=== PATIENT | female | born 1950 | race Caucasian/White ===

== ENCOUNTER → 2016-10-16 | Outpatient (CLI) | payer MEDICARE | END | disposition home or self-care (01) | LOC: MRI 10:50 | PROVIDERS: ATTEND Psychiatry & Neurology Neurology | DX: G40.219 Localization-related (focal) (partial) symptomatic epilepsy and epileptic syndromes with complex partial seizures, intractable, without status epilepticus (principal); M50.01 Cervical disc disorder with myelopathy, high cervical region; M51.16 Intervertebral disc disorders with radiculopathy, lumbar region ==

== ENCOUNTER → 2017-12-11 | Outpatient (CLI) | payer MEDICARE ==
--- NOTE | 2017-12-11 15:24 | MRI ---
EXAM DESCRIPTION: Brain w/o Contrast: MRI. CLINICAL HISTORY: G40.219. Localization-related (focal) (partial) symptomatic epilepsy and epileptic syndromes with complex partial seizures, intractable, without status epilepticus. COMPARISON: MRI scan brain noncontrast 10/16/2016. TECHNIQUE: Multiplanar, high-field MRI unit, multiple diffusion sequences, multiple conventional sequences without contrast. FINDINGS: Few scattered bilateral foci of hyperintense FLAIR and T2-weighted signal in the periventricular white matter and fr[place]-white matter junctions of the cerebral hemispheres. . These are confined predominantly to the bilateral frontal and parietal lobes at the level of the ventricles and superiorly toward the vertex. No hemorrhage, no cerebral edema, no diffusion restriction. Stable since the prior study. Normal signal in the bilateral basal ganglia. Normal signal in the brainstem and cerebellar hemispheres. No hemorrhage, no cerebral edema, no mass-effect. Concordance of the diffusion and non-diffusion sequences with no diffusion restriction. Cortical sulci, ventricles, and other CSF spaces, and the subdural spaces are normally configured for patients age. No effacement or displacement. No midline shift. No extra-axial hemorrhage. Normal flow signal void in the major vessels of the [place], and the venous sinuses. IACs are symmetric bilaterally. Normal signal in the bilateral mastoid air cells. No mass effect in the bilateral cerebellopontine angles. Pituitary gland occupies most of the sella. Base of the cerebellar tonsils is at the level of the foramen magnum. Small air-fluid level in the right maxillary antrum with mucoperiosteal thickening.. The bony calvarium is intact. IMPRESSION: 1. Few scattered bilateral hyperintense foci in the periventricular white matter and subcortical white matter predominantly in the frontal and parietal lobes. Most likely related to cerebral microvascular disease. Stable since the prior study October 2016. No hemorrhage, no cerebral edema, or diffusion restriction. 2. Acute sinusitis right maxillary antrum. Electronically signed by: Altaf Hammond MD 12/11/2017 3:22 PM CDT
== END ==
LOC: MRI 09:51
PROVIDERS: ATTEND Psychiatry & Neurology Neurology
DX: G40.219 Localization-related (focal) (partial) symptomatic epilepsy and epileptic syndromes with complex partial seizures, intractable, without status epilepticus (principal); G47.00 Insomnia, unspecified; I65.1 Occlusion and stenosis of basilar artery; J01.00 Acute maxillary sinusitis, unspecified

== ENCOUNTER → 2018-02-10 | Outpatient (CLI) | payer MEDICARE ==
--- NOTE | 2018-02-10 09:11 | MRI ---
EXAM DESCRIPTION: Lumbar Spine w/o Contrast CLINICAL HISTORY: 67 years Female, LUMABR RADICULOPATHY COMPARISON: MRI of the lumbar spine dated 03/17/2016. TECHNIQUE: Multiplanar multiecho imaging of the lumbar spine was performed without intravenous contrast administration. FINDINGS: The vertebral body heights are well-maintained with no acute compression deformity. Multilevel intervertebral disc space narrowing is noted. The conus medullaris terminates at T12-L1 intervertebral disc space. The visualized spinal cord demonstrates no signal abnormality. L1-L2: Mild disc bulge and facet arthropathy with no canal stenosis. There is mild bilateral neural foraminal narrowing. L2-L3: Mild disc bulge and facet arthropathy with no central canal stenosis. Mild bilateral neural foraminal narrowing is noted. L3-L4: Diffuse disc bulge and facet arthropathy with resultant moderate central canal stenosis and moderate bilateral neural foraminal narrowing. L4-L5: Diffuse disc bulge and facet arthropathy with no central canal stenosis. There is severe bilateral neural foraminal narrowing. L5-S1: Diffuse disc bulge and facet arthropathy with no central canal stenosis. Mild bilateral neural foraminal narrowing is identified. The visualized prevertebral and paravertebral soft tissues appear unremarkable. IMPRESSION: Multilevel degenerative disc disease and facet arthropathy throughout the lumbar spine with changes worse at L4-L5 level. Electronically signed by: Suzan Page MD 02/10/2018 9:10 AM CDT
== END ==
LOC: MRI 07:52
PROVIDERS: ATTEND Psychiatry & Neurology Neurology
DX: G60.3 Idiopathic progressive neuropathy (principal); M51.16 Intervertebral disc disorders with radiculopathy, lumbar region; G89.4 Chronic pain syndrome

== ENCOUNTER → 2018-11-17 | Outpatient (CLI) | payer MEDICARE | LOC: LAB.O 07:12 | PROVIDERS: ATTEND Family Medicine | DX: G40.909 Epilepsy, unspecified, not intractable, without status epilepticus (principal); I10 Essential (primary) hypertension; R53.83 Other fatigue; Z13.220 Encounter for screening for lipoid disorders ==

== ENCOUNTER → 2018-11-22 | Outpatient (CLI) | payer MEDICARE, OTHER ==
--- NOTE | 2018-11-22 17:16 | CT ---
Procedure: CT LUNG SCREENING Exam Date: 11/22/2018. Ordering Provider: Wojciech Alanis Clinical Indication: PERSONAL HX OF TOBACCO USE. 13 pack years. Cigarette smoking cessation 4 years ago. This patient meets eligibility criteria for low-dose CT lung cancer screening. Comparison: Chest x-ray outside imaging facility 05/26/2014 Technique: Using a multislice scanner, sequential helical axial imaging was obtained in the thorax, 2.5 mm thickness, 2.5 mm separation, from the level of the thoracic inlet through the lung bases without IV contrast. A low dose protocol was utilized for BMI less than 30: BMI: 23.4. CTDI: 1.76 mGy. 120. kVp. 45 mA. 2D sagittal and coronal reconstructed images, 6.0 mm thickness, were obtained. This exam was performed according to our departmental dose optimization program which includes use of automated exposure control, adjustment of the mA and/or kV according to patient size and/or use of iterative reconstruction technique. Nodule measurements under 10 mm are given as mean value of 3 axes diameters. FINDINGS: Lungs and large airways: Pleural parenchymal scarring in the base of the right middle lobe and inferior lingula. 5 mm right apical subpleural solid nodule versus pleural thickening on axial series/image 2/8. Bilateral diffuse emphysematous changes in the parenchyma more prevalent in the upper lung miranda. 5 mm solid subpleural nodule versus pleural thickening, base of the right middle lobe on image 2/83 with pleural extensions. 6 mm solid subpleural nodule versus pleural thickening versus acute infiltrate, base of the inferior lingula on image 2/79. 7 mm partially solid subpleural nodule versus infiltrate or pleural thickening medial base of the right middle lobe on image 2/67. Mosaic density in the inferior lingula and right middle lobe. Calcification/surgical clips intermittent segments of the lateral left horizontal fissure. Groundglass densities lateral subpleural right lower lobe. Small calcified nodule in the left base. Pleura and space: Multiple regions of focal pleural thickening. Left apical pleural thickening more than right. No pleural effusion or pneumothorax. Mediastinum and dash: evaluation limited by low dose technique and lack of IV contrast. Scattered normal size lymph nodes with no dominant soft tissue masses cartilage calcification. Heart and great vessels: Atherosclerotic calcification of the thoracic aorta and arch and minimal coronary artery calcification. Chest wall, lower neck, axillae: Evaluation also limited by same factors as described above. Normal sized lymph nodes with no dominant soft tissue masses. Upper abdomen: Evaluation limited by low-dose technique. Abdominal aortic calcification. No free fluid in the included peritoneal space. No free air. 1 cm cystic-density object in the left lobe of the liver. Osseous structures: Evaluation limited by low dose MIP technique. Minimal spondylosis. No lytic or blastic lesions. IMPRESSION: 1. Emphysematous changes in the lungs bilaterally, more prevalent in the upper lung miranda. Centrilobular pattern. 6 mm solid subpleural nodule versus pleural thickening in the base of the inferior lingula. 7 mm partially solid subpleural nodule versus infiltrate or pleural thickening medial base right middle lobe. 5 mm solid subpleural nodule versus pleural thickening infiltrate in the base of the right middle lobe. [facility] Best Practice recommendations:. Please see below for Lung RADS category and FOLLOW-UP.* *Lung RADS category CATEGORY 3 - Probably benign (1-2% malignancy probability), short term follow-up suggested. NODULES: Solid nodule(s) 6mm to less than 8mm at baseline, or new 4mm to under 6mm solid nodule. Part solid nodule total diameter 6mm to less than 8mm with solid component less than 6mm, or new less than 6mm total diameter nodule] [ground glass nodule(s) 20mm or greater. FOLLOW-UP: Please return for a Low Dose Chest CT in 6 months for re-evaluation. 2. 1 cm cystlike lesion in the left liver. Consider follow-up ultrasound evaluation of the left liver clinically indicated. Electronically signed by: Altaf Hammond MD 11/22/2018 5:14 PM CDT
== END ==
LOC: CT 08:00
PROVIDERS: ATTEND Family Medicine
DX: Z87.891 Personal history of nicotine dependence (principal); J43.9 Emphysema, unspecified; R91.8 Other nonspecific abnormal finding of lung field

== ENCOUNTER → 2019-01-06 | Outpatient (CLI) | payer MEDICARE ==
--- NOTE | 2019-01-06 20:21 | US ---
EXAM DESCRIPTION: Liver: ULTRASOUND. CLINICAL HISTORY: LIVER CYST COMPARISON: Seen on low-dose chest CT scan 11/22/2018. TECHNIQUE: Transabdominal scannin-dimensional and Doppler modes. FINDINGS: Gallbladder: Surgically removed. No fluid in the gallbladder fossa. Non-tender with transducer pressure. Common bile duct: caliber 6.0 mm within normal limits. Liver: normal echogenicity; subcapsular cyst right lobe measuring 1.3 x 1.2 cm. Contour liver capsule smooth where seen. No fluid around the liver. Intrahepatic biliary ducts normal caliber. Doppler hepatopedal flow portal vein. 1 cm Long axis right lobe 14.0 Pancreas: normal size and echogenicity. Duct not seen. Right kidney: long axis measures 9.5 cm. Echogenicity equal to the liver. Normal cortical thickness. No hydronephrosis. 3.6 mm echogenic stone versus fat superior pole, no definite acoustic shadowing. 5.6 mm stone versus fatty deposit mid cortex and body. No acoustic shadowing. IMPRESSION: 1. 1.3 cm cyst in the left lobe of the liver. Remainder the liver is unremarkable. Prior cholecystectomy. Common bile duct upper normal limits. Pancreas is negative. 2. Stones versus fatty deposits in the right kidney. No definite acoustic shadowing. Cortical echogenicity most likely related to aging. Consider follow-up scan abdomen and pelvis the patient is exhibiting urinary tract symptoms. Electronically signed by: Altaf Hammond MD 01/06/2019 8:19 PM CDT
== END ==
LOC: US 09:00
PROVIDERS: ATTEND Family Medicine
DX: K76.89 Other specified diseases of liver (principal); N28.9 Disorder of kidney and ureter, unspecified; Z90.49 Acquired absence of other specified parts of digestive tract

== ENCOUNTER → 2019-01-19 | Outpatient (CLI) | payer MEDICARE ==
--- NOTE | 2019-01-20 08:32 | MRI ---
EXAM DESCRIPTION: Cervical Spine: MRI. CLINICAL HISTORY: 68 years Female RADICULOPATHY COMPARISON: MRI cervical spine without contrast 03/17/2016. TECHNIQUE: Multiplanar, high-field MRI, multiple sequences, non-contrast Cervical spine. FINDINGS: C2-C3: Minimal disc desiccation and disc space loss. No bulging. Mild bony narrowing of the left neural foramen. Canal and right neuroforamen are patent. C3-C4: Disc desiccation with disc space preserved. No bulging. Bilateral uncinate spur and bilateral mild neural foraminal narrowing. Posterior ligament thickening. Canal minimally narrowed. C4-C5: Disc desiccation and minimal disc space loss. No posterior bulging. Trace anterolisthesis. Left uncinate spur and minimal neural foraminal narrowing. No canal narrowing. Right facet hypertrophic arthrosis and mild neural foraminal stenosis. Left facet is unremarkable. C5-C6: Moderate to severe disc space loss with disc desiccation. Anterior disc spur bulging and posterior disc osteophyte complex bulge abutting the cord. Posterior ligament thickening. Borderline mild central canal stenosis. Left uncinate spur and mild neural foraminal narrowing. Right uncinate spur and right side of the disc osteophyte complex resulting in borderline neural foraminal stenosis. C6-C7: Disc desiccation and minimal disc space loss. Trace posterior bulge. Posterior ligament thickening. Mild hypertrophic left facet arthrosis. Moderate narrowing of the canal and mild left neural foraminal narrowing. C7-T1: Disc desiccation with disc space preserved. No bulging. Facets and ligaments negative. No canal or foraminal stenosis. T1-T2: Disc desiccation with minimal disc space loss. Mild bilateral hypertrophic facet arthrosis. Canal and bilateral neural foramina are patent. Spinal alignment unremarkable.. No cord compression or cord edema. Atlantoaxial joint degeneration and minimal thickening of the anterior canal ligament.. Base of the cerebellar tonsils is at the level of the foramen magnum. Paravertebral soft tissues demonstrating an 8mm minimally hyperintense nodule in the posterior right thyroid lobe abutting the isthmus.. Vertebral bodies are not compressed at any level. Normal marrow signal in the remaining vertebral bodies and the posterior elements. IMPRESSION: 1. C4-C5 right facet hypertrophic arthrosis with right neural foraminal stenosis. Correlate for right C5 radiculopathy. This has progressed since the prior study. 2. Moderate spondylosis C5-C6. Posterior disc osteophyte bulge and posterior ligament thickening resulting in borderline mild central canal stenosis. This has progressed since the prior study. Right uncinate spur and right disc osteophyte complex causing right neural foraminal stenosis. Correlate for right C6 radiculopathy. Electronically signed by: Altaf Hammond MD 01/20/2019 8:30 AM CDT
== END ==
LOC: MRI 09:15
PROVIDERS: ATTEND Anesthesiology Pain Medicine
DX: M50.00 Cervical disc disorder with myelopathy, unspecified cervical region (principal); M50.122 Cervical disc disorder at C5-C6 level with radiculopathy; M48.02 Spinal stenosis, cervical region; M47.892 Other spondylosis, cervical region

== ENCOUNTER → 2019-02-25 | Outpatient (CLI) | payer MEDICARE ==
--- NOTE | 2019-02-28 11:16 | MAM ---
EXAM DESCRIPTION: 3D Screening BILATERAL : Digital Mammography. CLINICAL HISTORY: 68 years Female ANNUAL SCREENING . No complaints. No personal or family history of breast cancer. Menarche age 19. Postmenopausal. No HRT.. Lifetime risk of developing breast cancer (Tyrer-Cuzick model)(%): 9.8. COMPARISON: Baseline study at this facility. No prior reports available. TECHNIQUE: Bilateral CC and MLO projection full-field images, digital tomosynthesis mammographic technique Bilateral digital 2-D full-field MLO images. CAD not available for tomosynthesis or 2-D images. FINDINGS: The breast parenchymal density pattern is: Heterogeneously dense breast tissue, which may obscure small masses. No skin thickening or nipple retraction. Bilateral solitary microcalcifications. Cluster of calcifications lateral mid right breast. Lower outer quadrant. Mass density or nodule posterior third medial left breast 9:00 position 7 cm from the nipple. IMPRESSION: BI-RADS CATEGORY: 0 - INCOMPLETE- Need additional imaging evaluation. FOLLOW-UP: Recall for additional imaging: LM full-field two-dimensional and. Tomosynthesis left breast. Targeted/directed left breast ultrasound. Orthogonal spot magnification of calcifications right breast CC and LM projections. Written communication concerning the IMPRESSION and Follow-up, will be mailed to the patient and referring health care provider. Electronically signed by: Altaf Hammond MD 02/28/2019 11:15 AM CDT
== END ==
LOC: MAMMO 09:00
PROVIDERS: ATTEND Family Medicine
DX: Z12.31 Encounter for screening mammogram for malignant neoplasm of breast (principal)

== ENCOUNTER → 2019-03-15 | Outpatient (CLI) | payer MEDICARE | LOC: YCFC.O 09:37 | PROVIDERS: ATTEND Family Medicine | DX: I10 Essential (primary) hypertension (principal); G40.909 Epilepsy, unspecified, not intractable, without status epilepticus; R53.83 Other fatigue ==

== ENCOUNTER 2019-03-25 10:02 | Emergency (ER) | payer MEDICARE ==
[2019-03-25] MEDS ORDERED: MORPHINE SULFATE INJ 10 MG/ML VIAL IV ONE ×2 (10:51→13:16)
[2019-03-25] MEDS ORDERED: KETOROLAC TROMETHAMINE INJ 30 MG/ML VIAL IM ONE (10:51)
--- NOTE | 2019-03-25 11:05 | RAD ---
2 radiographs left hip. One radiograph pelvis. Indication: left hip pain after fall Comparison: None. Impression: Acute impacted intertrochanteric left femoral neck fracture. Mild bilateral hip osteoarthritis. No additional fracture of the pelvis identified. Evaluation for fracture is limited given the degree of osteopenia. If high clinical concern for acute fracture, correlation with MRI recommended given its greater sensitivity in the osteopenic patient. If the patient cannot tolerate MRI imaging or more urgent imaging is required, CT could be performed, however it is less sensitive in the osteopenic patient when compared to MRI. Lower lumbar disc disease. Osteopenia. If this is a new finding, DEXA scan recommended as well as evaluation for possible osteoporosis treatment. Electronically signed by: Pipe Ocasio MD 03/25/2019 11:03 AM [facility]
--- NOTE | 2019-03-25 11:08 | RAD ---
EXAM DESCRIPTION: Chest,1 View CLINICAL HISTORY: fall, copd COMPARISON: Chest radiograph dated May 26, 2014 CT lung screening low-dose dated November 22, 2018 TECHNIQUE: Single upright portable frontal radiographic view of the chest FINDINGS: Cardiac silhouette shows normal heart size. Pulmonary vascularity is within normal limits. Lung volumes are hyperinflated, compatible with COPD. Linear opacities in the medial aspect of the bilateral lower lung zones most likely represent atelectasis versus scarring. Underlying infiltrate cannot be entirely excluded. No pleural effusion. No pneumothorax. Visualized osseous structures show no destructive lesions. IMPRESSION: 1. Linear opacities medial aspect bilateral lower lung zones most likely represent atelectasis versus scarring. Underlying infiltrate cannot be entirely excluded. 2. Hyperinflated lung volumes, compatible with COPD. Electronically signed by: Larry Rankin MD 03/25/2019 11:06 AM [facility]
[2019-03-25] MEDS ORDERED: ONDANSETRON INJ 4 MG/2 ML VIAL IV ONE (11:40)
--- NOTE | 2019-03-25 12:47 | ED.PDOC ---
History of Present Illness - General Chief Complaint: Trauma Stated Complaint: s/p fall with left hip pain Time Seen by Provider: 03/25/19 10:09 Source: patient Exam Limitations: no limitations - History of Present Illness Initial Comments: the patient is a 68-year-old female who essentially missed her chair while going to sit down. She fell on her left hip. She is having pain in her left hip. No other injury. She does have long-standing issues with chronic back pain, epilepsy and COPD. She is not on any blood thinners and has not eaten anything yet today. Timing/Duration: momentarily Severity: severe Improving Factors: immobilization Worsening Factors: movement Associated Symptoms: denies symptoms Allergies/Adverse Reactions: Allergies NO KNOWN ALLERGY Allergy (Verified 03/25/19 10:23) Home Medications: Ambulatory Orders Amitriptyline HCl [Amitriptyline Hydrochlori] 50 mg PO BEDTIME 03/25/19 Hydrocodone-Acetaminophen [Hydrocodone Bitartrate/AC 7.5-325 mg] 1 tab PO QID PRN 03/25/19 Lisinopril 5 mg PO DAILY 03/25/19 Phenytoin Sodium Cap Extended [Dilantin Cap] 200 mg PO BID 03/25/19 Trazodone HCl 1 - 3 mg PO BEDTIME 03/25/19 tiZANidine [Zanaflex] 4 mg PO TID PRN 03/25/19 Review of Systems - Review of Systems Constitutional: States: no symptoms reported EENTM: States: no symptoms reported Respiratory: States: no symptoms reported Cardiology: States: no symptoms reported Gastrointestinal/Abdominal: States: no symptoms reported Genitourinary: States: no symptoms reported Musculoskeletal: States: see HPI Skin: States: no symptoms reported Neurological: States: no symptoms reported Endocrine: States: no symptoms reported All other Systems: No Change from Baseline Past Medical History (General) - Patient Medical History Hx Seizures: Yes Hx Stroke: No Hx Asthma: Yes Hx of COPD: Yes Hx Congestive Heart Failure: No Hx Hypertension: Yes Hx Diabetes: No Surgical History: cholecystectomy, Hysterectomy - Vaccination History Hx Influenza Vaccination: Yes Hx Pneumococcal Vaccination: Yes - Social History Hx Tobacco Use: Yes Family Medical History - Family History Mother Family History: Unknown Living Status: Unknown Physical Exam - Physical Exam General Appearance: Alert, Obvious distress Eye Exam: bilateral normal Ears, Nose, Throat: hearing grossly normal, normal ENT inspection Neck: full range of motion, supple Respiratory: lungs clear, normal breath sounds, no respiratory distress, no accessory muscle use Cardiovascular/Chest: normal peripheral pulses, regular rate, rhythm, no edema Peripheral Pulses: radial,right: 2+, radial,left: 2+, dorsalis pedis,right: 1+, dorsalis pedis,left: 1+, posterior tibialis,right: 1+, posterior tibialis,left: 1+ Gastrointestinal/Abdominal: non tender, soft Rectal Exam: deferred, other - no clinical evidence of pelvic instability Back Exam: no CVA tenderness, no vertebral tenderness Extremity: no calf tenderness, normal capillary refill, other - pain obviously in the left hip. No pain in the knee and ankle or foot. No obvious new back pain. Neurologic: social problems specialist II-XII nml as tested, alert, normal mood/affect, oriented x 3 Skin Exam: normal color Comments: Vital Signs - 24 hr 03/25/19 03/25/19 03/25/19 10:15 11:15 12:00 Temperature 97.1 F L Pulse Rate [ 77 74 79 Left Brachial] Respiratory 20 20 20 Rate Blood Pressure 179/79 195/89 167/74 [Left Arm] O2 Sat by Pulse 96 94 L 90 L Oximetry Progress - Progress Progress: 03/25/19 12:49 the patient is a 68-year-old female presenting to the emergency room secondary to a fall at home, sustaining a left intertrochanteric femur neck fracture. She does appear to be neurovascularly at her baseline at this time. She has received several doses of pain medications. Unfortunately the operating room here is closed until next week. As per the patient and her family's request, she will be sent to [facility] for orthopedic evaluation and intervention. There was some delay in transfer while determining if she would be able to have the surgery here or not. transferring for specialty care. - Results/Orders Results/Orders: Laboratory Tests 03/25/19 03/25/19 10:24 10:24 WBC 7.7 RBC 5.19 Hgb 15.7 Hct 46.4 MCV 89.4 MCH 30.2 MCHC 33.8 RDW 13.3 Plt Count 161 MPV 9.8 Absolute Neuts (auto) 6.30 Absolute Lymphs (auto) 0.70 L Absolute Monos (auto) 0.50 Absolute Eos (auto) 0.10 Absolute Basos (auto) 0.00 Neutrophils % 81.3 H Lymphocytes % 9.6 L Monocytes % 6.7 Eosinophils % 1.8 Basophils % 0.6 Sodium 137 Potassium 4.3 Chloride 102 Carbon Dioxide 25 Anion Gap 14.3 BUN 12 Creatinine 0.61 BUN/Creatinine Ratio 19.7 Random Glucose 95 Serum Osmolality 273.4 L Calcium 8.8 Total Bilirubin 0.4 AST 16 ALT 14 Alkaline Phosphatase 152 H Serum Total Protein 6.8 Albumin 3.7 Globulin 3.1 Albumin/Globulin Ratio 1.2 chest x-ray shows COPD. X-ray of the pelvis and left hip shows an impacted left intertrochanteric femur neck fracture along with osteoporosis. Departure - Departure Clinical Impression: Fracture of femoral neck, left, closed Qualifiers: Encounter type: initial encounter Qualified Code(s): S72.002A - Fracture of unspecified part of neck of left femur, initial encounter for closed fracture Disposition: Transfer to Hospital Departure Forms: ED Discharge - Pt. Copy, Patient Portal Self Enrollment Referrals: Thomas Umaña MD [Primary Care Provider] - 1-2 Weeks Home Medications: Ambulatory Orders Amitriptyline HCl [Amitriptyline Hydrochlori] 50 mg PO BEDTIME 03/25/19 Hydrocodone-Acetaminophen [Hydrocodone Bitartrate/AC 7.5-325 mg] 1 tab PO QID PRN 03/25/19 Lisinopril 5 mg PO DAILY 03/25/19 Phenytoin Sodium Cap Extended [Dilantin Cap] 200 mg PO BID 03/25/19 Trazodone HCl 1 - 3 mg PO BEDTIME 03/25/19 tiZANidine [Zanaflex] 4 mg PO TID PRN 03/25/19 Transfer to Outside Facility - Transfer Information Decision to Transfer Date: 03/25/19 Decision to Transfer Time: 12:51 Reason for Transfer: required specialist not available Accepting Provider:: dr moreira Accepting Facility: [facility]
[2019-03-25 13:29] VITALS: BP 184/82; TEMP 97.2; O2SAT 93
== END 2019-03-25 13:29 | disposition short-term general hospital (02) ==
LOC: ER 10:02
DX: S72.142A Displaced intertrochanteric fracture of left femur, initial encounter for closed fracture (principal); J44.9 Chronic obstructive pulmonary disease, unspecified; G40.909 Epilepsy, unspecified, not intractable, without status epilepticus; G89.29 Other chronic pain; M54.9 Dorsalgia, unspecified; M51.9 Unspecified thoracic, thoracolumbar and lumbosacral intervertebral disc disorder; M85.88 Other specified disorders of bone density and structure, other site; I10 Essential (primary) hypertension; I45.10 Unspecified right bundle-branch block; Z87.891 Personal history of nicotine dependence; Z79.899 Other long term (current) drug therapy; W07.XXXA Fall from chair, initial encounter; Y92.9 Unspecified place or not applicable
CPT/HCPCS: 36415; 71045; 72170; 73502; 80053; 85025; 93005; J1885; J2270; J2405

== ENCOUNTER → 2019-05-02 | Outpatient (CLI) | payer MEDICARE ==
--- NOTE | 2019-05-02 11:09 | US ---
EXAM DESCRIPTION: Venous,Lower Extremity LT CLINICAL HISTORY: LEG PAIN COMPARISON: None Available. TECHNIQUE: Left lower extremity venous duplex FINDINGS: Sonography reveals clot in the popliteal peroneal and posterior tibial veins. The more cephalad venous system is patent. IMPRESSION: The exam reveals evidence of deep venous thrombosis in the popliteal peroneal and tibial veins. Electronically signed by: Larry Squires MD 05/02/2019 11:08 AM [facility]
== END ==
LOC: US 10:09
PROVIDERS: ATTEND Family Medicine
DX: M71.22 Synovial cyst of popliteal space [Baker], left knee (principal); I82.432 Acute embolism and thrombosis of left popliteal vein; I82.442 Acute embolism and thrombosis of left tibial vein

== ENCOUNTER → 2019-07-19 | Outpatient (CLI) | payer MEDICARE | DX: J44.9 Chronic obstructive pulmonary disease, unspecified (principal); K92.1 Melena; M62.81 Muscle weakness (generalized); Z98.890 Other specified postprocedural states ==

== ENCOUNTER → 2019-08-30 | Outpatient (CLI) | payer MEDICARE, OTHER ==
--- NOTE | 2019-08-31 12:00 | CT ---
Procedure: CT CHEST WITHOUT IV CONTRAST: Low dose protocol. Exam Date: August 30, 2019. Ordering Provider: Wojciech Alanis Clinical Indication: LUNG NODULE . 13 pack years. Cigarette smoking cessation 5 years ago. This patient meets eligibility criteria for low-dose CT lung cancer screening. Comparison: Low-dose CT lung cancer screening examination November 2018. Technique: Using a multislice scanner, sequential helical axial imaging was obtained in the thorax, 2.5 mm thickness, 2.5 mm separation, from the level of the thoracic inlet through the lung bases without IV contrast. A low dose protocol was utilized for BMI less than 30: BMI: 23.0. CTDI: 1.76 mGy. 120. kVp. 45 mA. DLP 71.9 mGy-cm. 2D sagittal and coronal reconstructed images, 6.0 mm thickness, were obtained. This exam was performed according to our departmental dose optimization program which includes use of automated exposure control, adjustment of the mA and/or kV according to patient size and/or use of iterative reconstruction technique. Nodule measurements under 10 mm are given as mean value of 3 axes diameters. FINDINGS: Lungs and large airways: 5 mm subpleural nodule right apex on axial series 2, image 17, more likely associated with focal pleural thickening and stable. Subpleural anterior nodule/density medial right middle lobe base slightly more dense but stable in size on images 2/69-72. Questionable nodule on the prior scan seen in the medial right middle lobe is more diffuse and consistent with pleural thickening on this study. Questionable nodule in the inferior lingula subpleural location is more consistent with pleural thickening on the current study. Bilateral pleural-parenchymal scarring is stable. Bilateral parenchymal blebs in a centrilobular pattern, more prominent in the upper lung miranda stable over the interval. Stable calcifications in the left lower lobe. No new nodules and no masses. No acute or new infiltrates. Pleura and space: Bilateral multifocal regions of thickening with no effusion or pneumothorax. Mediastinum and dash: evaluation limited by low dose technique and lack of IV contrast. Cartilage calcifications. Lymph nodes unchanged. No new dominant focal mass. Heart and great vessels: Aortic atherosclerotic calcifications. Chest wall, lower neck, axillae: Evaluation also limited by same factors as described above. Negative. Upper abdomen: Evaluation limited by low-dose technique. Probable adenoma left adrenal gland stable. No free air or free fluid. Included peritoneal cavity. Surgical clips gallbladder fossa. Osseous structures: Evaluation limited by low dose MIP technique. Minimal spondylosis. Arthrosis manubriosternal joint, bilateral sternoclavicular joints, and bilateral first costosternal joints. IMPRESSION: B 1. Bilateral centrilobular emphysema more prevalent in the upper lung miranda unchanged. No acute infiltrate. Bilateral focal regions of pleural thickening more likely than subpleural nodules. Stable, category 3, 11 x 7 mm, subpleural nodule versus focal pleural thickening anterior right middle lobe.. [facility] Best Practice Recommendations: please see below for Lung RADS category and FOLLOW-UP.* *Lung RADS category CATEGORY 2- Nodules with a very low likelihood (less than 1%) of becoming a clinically active cancer due to size or lack of growth. Nodules: Perifissural nodule(s) < 10 mm. (526mm3). Solid or part solid nodule(s) less than 6mm (113.1 mm3), new solid nodule less than 4mm (33.5 mm3). Ground glass nodule(s) less than 30mm (16507.2 mm3) or unchanged or slow growing ground glass nodule 30mm or greater. Cat 3 or 4 nodule unchanged for 3 or more months. 2. Stable left adrenal adenoma. FOLLOW-UP: Continue annual screening with a Low Dose Chest CT in 12 months for re-evaluation. Electronically signed by: Altaf Hammond MD 08/31/2019 11:59 AM CDT
== END ==
LOC: CT 11:29
PROVIDERS: ATTEND Family Medicine
DX: Z87.891 Personal history of nicotine dependence (principal); R91.1 Solitary pulmonary nodule; J43.9 Emphysema, unspecified; R91.8 Other nonspecific abnormal finding of lung field

== ENCOUNTER → 2019-09-28 | Outpatient (CLI) | payer MEDICARE, OTHER ==
--- NOTE | 2019-09-29 09:53 | RAD ---
EXAM DESCRIPTION: Chest,2 Views: CR/ CLINICAL HISTORY: 69 years Female bronchitis COMPARISON: 2 view chest July 18. TECHNIQUE: Two views. PA and Lateral. FINDINGS: Lungs: Remain hyperinflated with prior sutures mid left lung. Chronic perihilar peribronchial wall cuffing. Chronic bibasilar densities. No acute infiltrate. Pleural spaces: No effusion or pneumothorax bilaterally. Heart: Borderline enlarged with no interval change. Pulmonary Vascularity: Not increased. Mediastinum: Not widened. Aorta: Unremarkable. Bony Thorax/Spine: No acute bony thoracic abnormalities. IMPRESSION: Stable emphysematous changes in the lungs with no acute infiltrate. Borderline cardiomegaly is stable. Electronically signed by: Altaf Hammond MD 09/29/2019 9:51 AM CDT
== END ==
LOC: LAB.O 10:02
PROVIDERS: ATTEND Family Medicine
DX: J40 Bronchitis, not specified as acute or chronic (principal); J43.9 Emphysema, unspecified; I51.7 Cardiomegaly; I10 Essential (primary) hypertension

== ENCOUNTER → 2019-11-22 | Outpatient (CLI) | payer MEDICARE, OTHER ==
--- NOTE | 2019-11-22 11:48 | RAD ---
EXAM DESCRIPTION: Chest,2 Views CLINICAL HISTORY: BRONCHITIS COMPARISON: Previous chest x-ray September 28, 2019 TECHNIQUE: PA/lateral FINDINGS: Pulmonary staple line in the left lung unchanged from previous. Posterior left rib deformities may be old healed fractures or changes from previous surgery. Heart size is normal with normal pulmonary vascularity. No pleural effusion or pneumothorax. Patchy infiltrate or scarring in the lingula and right middle lobe. Similar appearance on previous study. Lungs are hyperexpanded. Lateral view shows intact sternum and osteopenic T-spine. IMPRESSION: Patchy infiltrate or scarring in the lingula and right middle lobe. Electronically signed by: Tino Segovia MD 11/22/2019 11:47 AM CDT
== END ==
LOC: YCFC.O 09:34
PROVIDERS: ATTEND Family Medicine
DX: Z03.818 Encounter for observation for suspected exposure to other biological agents ruled out (principal); I10 Essential (primary) hypertension; J40 Bronchitis, not specified as acute or chronic; R91.8 Other nonspecific abnormal finding of lung field

== ENCOUNTER 2019-12-12 16:27 | Emergency (ER) | payer MEDICARE, OTHER ==
--- NOTE | 2019-12-12 16:31 | ED.PDOC ---
History of Present Illness - General Time Seen by Provider: 12/12/19 16:28 Source: patient, family - History of Present Illness Initial Comments: 69 yo female with PMH of COPD, epilepsy, chronic back pain, hx of L hip frx s/p repair 03/2019 who presents with cc of Left hip pain following fall which occurred at home just [employer]. Reports she was walking on concrete when she tripped and fell onto her left side., Left lower leg, and left hand. Reports primary pain to left lateral calf region with radiation to the left groin/inguinal region, constant, 11/10 severity, sharp and throbbing, worse with any movement of the hip or attempted weightbearing. She has not been able to stand or walk since the injury. She has not taken any medications for relief. Denies any weakness, numbness, deformity. She is concerned she may have broken her left hip again, which she just broke in March of last year from a fall and was transferred he was and underwent surgical fixation of the left hip by Dr. Felix. Also reports moderate pains to the left lateral lower leg, left hand at the base of the fourth digit along the palmar aspect, and also pain to the anterior chest wall which began after the fall. Describes the chest wall pain is mild, sharp, constant, worse with palpation and deep breathing. Denies fevers, chills, cough, dyspnea, abdominal pain, urinary symptoms, headache, neck pain. PCP is Dr. Umaña. Allergies/Adverse Reactions: Allergies NO KNOWN ALLERGY Allergy (Verified 12/12/19 16:46) Home Medications: Ambulatory Orders Amitriptyline HCl [Amitriptyline Hydrochlori] 50 mg PO BEDTIME 03/25/19 Hydrocodone-Acetaminophen [Hydrocodone Bitartrate/AC 7.5-325 mg] 1 tab PO QID PRN 03/25/19 Lisinopril 5 mg PO DAILY 03/25/19 Phenytoin Sodium Cap Extended [Dilantin Cap] 200 mg PO BID 03/25/19 Trazodone HCl 1 - 3 mg PO BEDTIME 03/25/19 tiZANidine [Zanaflex] 4 mg PO TID PRN 03/25/19 Tramadol HCl 50 mg PO Q6HR PRN 10 Days #20 tab 12/12/19 Review of Systems - Review of Systems Review of Systems: 12/12/19 16:48 as per HPI All other Systems: Reviewed and Negative Past Medical History (General) - Patient Medical History Hx Seizures: Yes Hx Stroke: No Hx Asthma: Yes Hx of COPD: Yes Hx Congestive Heart Failure: No Hx Hypertension: Yes Hx Diabetes: No - Vaccination History Hx Influenza Vaccination: Yes Hx Pneumococcal Vaccination: Yes - Social History Hx Tobacco Use: Yes Family Medical History - Family History Mother Family History: Unknown Living Status: Unknown Physical Exam - Physical Exam General Appearance: Alert, Comfortable, No apparent distress Eye Exam: bilateral normal Ears, Nose, Throat: hearing grossly normal, normal ENT inspection, normal pharynx Neck: non-tender, full range of motion, supple, normal inspection Respiratory: lungs clear, normal breath sounds, no respiratory distress, no accessory muscle use, other - Moderate anterior left chest wall tenderness to p alpation without bruising/swelling/deformity Cardiovascular/Chest: normal peripheral pulses, regular rate, rhythm, no edema, no gallop, no JVD, no murmur Peripheral Pulses: radial,right: 2+, radial,left: 2+ Gastrointestinal/Abdominal: non tender, soft, no organomegaly Back Exam: normal inspection, no CVA tenderness, no vertebral tenderness Extremity: swelling - Mild to palmar aspect of proximal fourth digit with mild ecchymoses. Range of motion of the fourth MCP joint is moderately limited due to pain. No apparent deformity noted. Scattered superficial abrasion injuries noted to lateral left lower leg with mild tenderness to palpation w/o deformity, other - Left hip appears normal on inspection without bruising/swelling/deformity/shortening/rotation. Moderate tenderness to palpation to the lateral hip and medial inguinal region. Strength and sensation appear normal throughout. 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 We will give [place] 7.5 for pain. 12/12/19 17:39 -Pt remains stable. All XR imaging reviewed by me. I see no acute processes or fractures. Awaiting radiology reads. Will obtain CT pelvis w/o as pt is with significant pain and trouble weightbearing on the LLE and I remain concerned for an occult pelvic or hip fracture. 12/12/19 18:46 -CT pelvis reveals cortical irregularity of R superior pubic rami, closed nondisplaced fracture not excluded per read. As this is in the area of pt's reported pain, I am highly suspicious for nondisplaced fracture. -Patient remained stable. Pain is much improved with [place] in the ED. Her blood pressure is improved with pain control and oral clonidine. -Discussed the findings in full with the patient. Advised that we will discharge her to home and she may gradually return to weightbearing and walking as tolerated. She will need to follow-up with her primary care physician in the next 5 to 7 days for repeat evaluation and repeat blood pressure check. She is having issues returning to weightbearing and walking she may need some outpatient physical therapy. She may also follow-up with orthopedic surgery in the clinic as well. We will send her home with as needed prescription of tramadol. Cruzito Ramsey MD Billing #[id number] 12/12/19 16:42 IV Care:Saline Lock per Protoc QSHIFT Telemetry .ONCE Sodium Chloride 0.9% (Flush) [Saline Flush Syringe] 10 ml IV PRN PRN 12/12/19 16:44 URINALYSIS Stat 12/12/19 16:45 EKG STAT 12/13/19 09:00 Pulse Ox Daily Laboratory Results - last 24 hr 12/12/19 12/12/19 12/12/19 16:55 16:55 16:55 WBC 12.5 H RBC 5.07 Hgb 14.8 Hct 43.2 MCV 85.1 MCH 29.3 MCHC 34.4 RDW 13.9 Plt Count 139 MPV 10.0 Absolute Neuts (auto) 10.90 H Absolute Lymphs (auto) 0.60 L Absolute Monos (auto) 0.80 Absolute Eos (auto) 0.10 Absolute Basos (auto) 0.00 Neutrophils % 87.6 H Lymphocytes % 4.8 L Monocytes % 6.3 Eosinophils % 1.0 Basophils % 0.3 PT 9.9 INR 1.00 PTT (SP) 22.9 Sodium Potassium Chloride Carbon Dioxide Anion Gap BUN Creatinine BUN/Creatinine Ratio Random Glucose Serum Osmolality Calcium Troponin I 0.02 12/12/19 16:55 WBC RBC Hgb Hct MCV MCH MCHC RDW Plt Count MPV Absolute Neuts (auto) Absolute Lymphs (auto) Absolute Monos (auto) Absolute Eos (auto) Absolute Basos (auto) Neutrophils % Lymphocytes % Monocytes % Eosinophils % Basophils % PT INR PTT (SP) Sodium 138 Potassium 4.0 Chloride 102 Carbon Dioxide 28 Anion Gap 12.0 BUN 14 Creatinine 0.98 BUN/Creatinine Ratio 14.3 Random Glucose 99 Serum Osmolality 276.2 Calcium 9.0 Troponin I - EKG/XRAY/CT EKG: Sinus - NSR with incomplete RBBB, HR 90, no ST elevs noted, q waves noted in anteroseptal leads likely indicative of prior [place], nonspecific T wave inversions noted in AVL, left axis deviation, intervals normal, compared to 03/25/19 EKG T wave inversion appears new but otherwise largely unchanged XRAY: chest - No acute processes per my read. Chronic interstitial scarring noted at bilateral lower lung miranda Departure - Departure Clinical Impression: Contusion of left hip, initial encounter Fracture of superior pubic ramus Qualifiers: Encounter type: initial encounter Fracture type: closed Laterality: right Qualified Code(s): S32.511A - Fracture of superior rim of right pubis, initial encounter for closed fracture Time of Disposition: 18:20 Disposition: Discharge to Home or Self Care Condition: Good Instructions: Contusion (DC) Diet: resume usual diet Activity: increase activity as tolerated, walking as tolerated Referrals: Thomas Umaña MD [Primary Care Provider] - 1 Week Deon Aranda MD [Active Staff] - 1-2 Weeks Prescriptions: Tramadol HCl 50 mg PO Q6HR PRN 10 Days #20 tab PRN Reason: Pain Home Medications: Ambulatory Orders Amitriptyline HCl [Amitriptyline Hydrochlori] 50 mg PO BEDTIME 03/25/19 Hydrocodone-Acetaminophen [Hydrocodone Bitartrate/AC 7.5-325 mg] 1 tab PO QID PRN 03/25/19 Lisinopril 5 mg PO DAILY 03/25/19 Phenytoin Sodium Cap Extended [Dilantin Cap] 200 mg PO BID 03/25/19 Trazodone HCl 1 - 3 mg PO BEDTIME 03/25/19 tiZANidine [Zanaflex] 4 mg PO TID PRN 03/25/19 Tramadol HCl 50 mg PO Q6HR PRN 10 Days #20 tab 12/12/19 Additional Instructions: Gradually return to weight bearing and walking on the left leg as tolerated. Continue OTC medications for pain and inflammation such as Tylenol 650 mg every 6 hours as needed and ibuprofen 600 mg every 6 hours as needed. Apply a cold pack for 15-20 minutes every 1-2 hours for the next 2-3 days to the affected areas to help reduce inflammation and swelling. Follow up with your primary care physician in the next 5-7 days is recommended for repeat evaluation or sooner as needed.
[2019-12-12] MEDS ORDERED: SODIUM CHLORIDE 0.9% (FLUSH) 10 ML SYG IV PRN (16:42)
[2019-12-12] MEDS ORDERED: HYDROcodone 7.5MG/APAP 325MG 1 EA TAB PO ONE ×2 (16:44→19:43)
[2019-12-12 16:48] VITALS: TEMP 98.4
--- NOTE | 2019-12-12 17:43 | RAD ---
EXAM DESCRIPTION: Chest x-ray,1 View CLINICAL HISTORY: GLF, anterior chest wall pain COMPARISON: November 22, 2019 FINDINGS: Cardiac silhouette is within normal limits. There is no focal parenchymal or pleural disease. There is no acute osseous process visualized. IMPRESSION: No evidence of acute cardiopulmonary disease. Stable exam. Electronically signed by: Migel Leon MD 12/12/2019 5:41 PM CDT
--- NOTE | 2019-12-12 17:45 | RAD ---
EXAM DESCRIPTION: XR Hand, Left 3 Views CLINICAL HISTORY: 69 years Female Ground level fall, Left hand pain TECHNIQUE: Three views of the left hand are provided. COMPARISON: No prior exams provided for comparison. FINDINGS: Minimal soft tissue swelling dorsal to the third metacarpal head without soft tissue gas or foreign body. There is no acute left hand fracture, dislocation, or foreign body. Visualized joint spaces are preserved. No aggressive osseous lesion. IMPRESSION: Minimal soft tissue swelling dorsal to the third metacarpal head without fracture or dislocation. Electronically signed by: Jessica Mayo MD 12/12/2019 5:43 PM CDT
--- NOTE | 2019-12-12 17:45 | RAD ---
EXAM DESCRIPTION: Humerus,Left CLINICAL HISTORY: GLF, LLE pain COMPARISON: None FINDINGS: Two x-ray views of the left humerus were submitted. There is no acute fracture or dislocation. Bone mineralization is within normal limits. There is no radiopaque foreign body material. IMPRESSION: No acute fracture or dislocation. Electronically signed by: Migel Leon MD 12/12/2019 5:43 PM CDT
--- NOTE | 2019-12-12 17:47 | RAD ---
EXAM DESCRIPTION: Pelvis,2 or More Views CLINICAL HISTORY: GLF, Left hip pelvis pain COMPARISON: None FINDINGS: Three x-ray views of the pelvis were submitted. There is no acute fracture or dislocation. The patient is status post open reduction internal fixation of the left femoral neck. There are degenerative changes at the lower lumbar spine. IMPRESSION: No acute fracture or dislocation. Electronically signed by: Migel Leon MD 12/12/2019 5:45 PM CDT
--- NOTE | 2019-12-12 17:48 | RAD ---
EXAM DESCRIPTION: Tibia/Fibula,Left CLINICAL HISTORY: GLF, LLE pain COMPARISON: None FINDINGS: Two x-ray views of the left tibia-fibula were submitted. There is no acute fracture or dislocation. There is no radiopaque foreign body material. IMPRESSION: No acute fracture or dislocation. Electronically signed by: Migel Leon MD 12/12/2019 5:47 PM CDT
--- NOTE | 2019-12-12 17:51 | RAD ---
EXAM DESCRIPTION: Femur,Left CLINICAL HISTORY: GLF, Left hip and groin pain COMPARISON: None FINDINGS: Two x-ray views of the left femur were submitted. There is no acute fracture or dislocation. Patient is status post open reduction internal fixation of the left femoral neck. There is no radiopaque foreign body material. IMPRESSION: No acute fracture or dislocation. Electronically signed by: Migel Leon MD 12/12/2019 5:49 PM CDT
[2019-12-12 18:01] VITALS: O2SAT 94
[2019-12-12] MEDS ORDERED: cloNIDine HCL 0.1 MG TAB PO ONE (18:47)
[2019-12-12] MEDS ORDERED: cloNIDine HCL 0.1 MG TAB ONE (18:48)
--- NOTE | 2019-12-12 19:01 | CT ---
PROCEDURE: Pelvis CLINICAL HISTORY: 69 years ,Female ,GLF, L hip and groin pain, trouble weight-bearing COMPARISON: None. TECHNIQUE: Contiguous axial images obtained through the pelvis without IV contrast. Coronal and sagittal reformatted images obtained. This exam was performed according to our department optimization program which includes automated exposure control, adjustment of the mA and/or kv according to patient size and/or use of iterative reconstruction technique. FINDINGS: Previous ORIF of the left hip. Mild degenerative change the symphysis pubis. SI joints appear intact. Subtle area of cortical irregularity along the superior pubic ramus. Nondisplaced fractures not excluded. Inferior pubic ramus appears intact. IMPRESSION: Subtle area of cortical irregularity along the left superior pubic ramus. Nondisplaced fracture is not excluded.. Electronically signed by: Laura Rodrigues MD 12/12/2019 6:59 PM CDT
[2019-12-12 19:07] VITALS: BP 190/88
== END 2019-12-12 20:10 | disposition home or self-care (01) ==
LOC: ER 16:27
DX: S32.512A Fracture of superior rim of left pubis, initial encounter for closed fracture (principal); S60.042A Contusion of left ring finger without damage to nail, initial encounter; S80.812A Abrasion, left lower leg, initial encounter; R10.32 Left lower quadrant pain; R07.89 Other chest pain; M79.642 Pain in left hand; I45.10 Unspecified right bundle-branch block; G40.909 Epilepsy, unspecified, not intractable, without status epilepticus; J44.9 Chronic obstructive pulmonary disease, unspecified; I10 Essential (primary) hypertension; Z87.891 Personal history of nicotine dependence; Z79.899 Other long term (current) drug therapy; Z87.81 Personal history of (healed) traumatic fracture; W01.0XXA Fall on same level from slipping, tripping and stumbling without subsequent striking against object, initial encounter; Y93.01 Activity, walking, marching and hiking; Y92.009 Unspecified place in unspecified non-institutional (private) residence as the place of occurrence of the external cause; Z98.890 Other specified postprocedural states

== ENCOUNTER → 2020-07-04 | Outpatient (CLI) | payer MEDICARE ==
--- NOTE | 2020-07-04 11:02 | RAD ---
2 radiographs left hip Indication: PAIN OF LEFT HIP JOINT Comparison: March 25, 2019 Impression: Prior ORIF of the previously noted left femoral neck fracture. CT could better evaluate the degree of osseous union as clinically indicated. Mild left hip osteoarthritis. No acute left hip fracture identified. Evaluation for fracture is limited given the degree of osteopenia. If high clinical concern for acute fracture, correlation with MRI recommended given its greater sensitivity in the osteopenic patient. If the patient cannot tolerate MRI imaging or more urgent imaging is required, CT could be performed, however it is less sensitive in the osteopenic patient when compared to MRI. Electronically signed by: Pipe Ocasio MD 07/04/2020 11:01 AM [facility]
== END ==
LOC: YCFC.O 10:33
PROVIDERS: ATTEND Family Medicine
DX: M16.12 Unilateral primary osteoarthritis, left hip (principal); M85.852 Other specified disorders of bone density and structure, left thigh; Z87.81 Personal history of (healed) traumatic fracture